=== PATIENT | female | born 1950 | race Caucasian/White ===

== ENCOUNTER 2023-09-06 07:47 | Day surgery (SDC) | payer MEDICARE ==
[2023-08-30 15:40] LABS: BASOPHILS # (AUTO) 0.1 X10'3 (0-0.2); BASOPHILS % (AUTO) 0.7 % (0-1); EOSINOPHILS # (AUTO) 0.3 X10'3 (0-0.9); LYMPHOCYTES # (AUTO) 1.2 X10'3 (1.1-4.8); LYMPHOCYTES % (AUTO) 11.7 % (21-51); MEAN CORPUSCULAR HEMOGLOBIN 30.1 PG (27.0-31.0); MEAN CORPUSCULAR HGB CONC 33.1 g/dL (33.0-36.5); MEAN CORPUSCULAR VOLUME 91.1 FL (78-98); MONOCYTES # (AUTO) 0.9 X10'3 (0-0.9); MONOCYTES % (AUTO) 8.9 % (2-12); NEUTROPHILS % (AUTO) 75.7 % (42-75); PRE OP HEMATOCRIT 47.5 % (35.0-45.0); PRE OP HEMOGLOBIN 15.7 g/dL (12.0-16.0); PRE OP PLATELET COUNT 230 X10'3 (140-440); PRE OP WHITE BLOOD COUNT 10.5 10'3 (4.8-10.8); RED BLOOD COUNT 5.21 X10'6 (4.20-5.60); RED CELL DISTRIBUTION WIDTH 13.8 % (11.5-14.5)
[2023-08-30 15:53] LABS: ALBUMIN 3.4 G/DL (3.4-5.0); ALBUMIN/GLOBULIN RATIO 0.7 (1.1-1.5); ALKALINE PHOSPHATASE 106 IU/L (46-116); BLOOD UREA NITROGEN 27 MG/DL (7-18); BUN/CREATININE RATIO 17.6 (10.0-20.0); CALCIUM 9.4 MG/DL (8.5-10.1); CHLORIDE 99 MMOL/L (99-107); CREATININE 1.53 MG/DL (0.40-0.90); PRE OP ALT 25 U/L (30-65); PRE OP ANION GAP 13 (8-16); PRE OP AST 22 U/L (10-37); PRE OP BILIRUB, TOTAL 0.5 MG/DL (0.0-1.0); PRE OP POTASSIUM 3.4 MMOL/L (3.4-5.1); PRE OP SODIUM 138 MMOL/L (135-145); TOTAL CARBON DIOXIDE 26.2 MMOL/L (24-32); TOTAL PROTEIN 8.3 G/DL (6.4-8.2); eGFR 33 ML/MIN
[2023-08-30 15:57] LABS: PRE OP GLUCOSE 269 MG/DL (70-104)
[~2023-09-06] VITALS: Ht 167.6 cm; Wt 124.0 kg
[2023-09-06] VITALS (10 sets, daily range): BP systolic 122–176; BP diastolic 77–111; PULSE 76–112; RESP 16–21; TEMP 97.5; O2SAT 95–99
[~2023-09-06 07:47] MED LIST: ALBU8HFA INH; CALC-97 PO; EMPA25TA PO; FLUT1BLS4 INH; FURO40TA4 PO; HYDR-3686 PO; LANTUS SQ; POTA-206 PO; VALS80TA32 PO; VORT5TAB PO
[2023-09-06] MEDS: famotidine 20mg tablet PO ONE (08:32)
[2023-09-06] MEDS: ringers solution, lacted 1,000 ML IV SCH (08:32)
[2023-09-06] MEDS ORDERED: sevoflurane 250ml liquid IH ONE (09:08)
[2023-09-06] MEDS ORDERED: midazolam 1 mg/ML 2ml injection ONE (09:14)
[2023-09-06] MEDS ORDERED: fentaNYL/PF 50MCG/1 ML 2ML syringe ONE (09:14)
[2023-09-06] MEDS ORDERED: rocuronium 10mg/ml inj IV ONE (10:17)
[2023-09-06] MEDS ORDERED: propofol inj 20 ML IV ONE (10:17)
[2023-09-06] MEDS ORDERED: glycopyrrolate 0.2mg/ml inj ONE (10:17)
[2023-09-06] MEDS ORDERED: neostigmine methylsulfate 1 MG/ML 10ml vial ONE (10:17)
[2023-09-06] MEDS ORDERED: ipratropium/albuterol 3ml nebule NEB PRN (10:25)
[2023-09-06] MEDS ORDERED: enalaprilat dihydrate 2.5mg/2ml vial IV PRN (11:10)
[2023-09-06] MEDS ORDERED: ringers solution, lacted 1,000 ML IV SCH (11:10)
[2023-09-06] MEDS ORDERED: ondansetron/PF 4mg/2ml inj IV PRN (11:10)
[2023-09-06] MEDS ORDERED: morphine 4 MG/ML inj SYRINge IV PRN (11:10)
[2023-09-06] MEDS ORDERED: meperidine/PF 25mg/ml syringe IV PRN ×3 (11:10)
[2023-09-06] MEDS ORDERED: proCHLORperazine 10 MG/2 ml inj IV PRN (11:10)
[2023-09-06] MEDS ORDERED: labetalol 20mg/4ml (5mg/ml) syringe IV PRN (11:10)
[2023-09-06] MEDS ORDERED: morphine 2 MG/ML inj. syringe IV PRN (11:10)
== END 2023-09-06 11:49 | disposition home or self-care (01) ==
LOC: PAS 07:47 → EDBD 09:45 → PAS 11:49
PROVIDERS: ATTEND Internal Medicine Critical Care Medicine
DX: R91.8 Other nonspecific abnormal finding of lung field (principal); I13.0 Hypertensive heart and chronic kidney disease with heart failure and stage 1 through stage 4 chronic kidney disease, or unspecified chronic kidney disease; E11.22 Type 2 diabetes mellitus with diabetic chronic kidney disease; N18.9 Chronic kidney disease, unspecified; I50.9 Heart failure, unspecified; E66.01 Morbid (severe) obesity due to excess calories; J44.9 Chronic obstructive pulmonary disease, unspecified; F41.9 Anxiety disorder, unspecified; F32.A Depression, unspecified; G47.30 Sleep apnea, unspecified; Z79.899 Other long term (current) drug therapy; Z90.710 Acquired absence of both cervix and uterus; Z96.653 Presence of artificial knee joint, bilateral; Z98.890 Other specified postprocedural states; Z68.41 Body mass index [BMI] 40.0-44.9, adult; Z88.5 Allergy status to narcotic agent
CPT/HCPCS: 31627; 31629; 31653; 36415; 71045; 71250; 80053; 82948; 85025; 87015; 87070; 87077; 87102; 87116; 87185; 87206; 88341; J1100; J2250; J2405; J2704; J2710; J3010; J3490; J7120; Z7506; Z7508; Z7512; 31622; 31624; 31625; 31626; 31628; 31654; 88172; 88173; 88305; 88342; A4618